=== PATIENT | female | born 1985 | race Caucasian/White ===

== ENCOUNTER 2018-01-19 15:32 | Emergency (ER) | payer OTHER ==
[~2018-01-19] VITALS: Ht 162.6 cm; Wt 73.0 kg
[2018-01-19 15:35] VITALS: BP 132/74
[2018-01-19] MEDS ORDERED: HYDROcodone/APAP 5/325MG 1 TAB TABLET PO ONE (16:40)
[2018-01-19] MEDS ORDERED: IBUP800T19 PO (16:44)
[2018-01-19] MEDS ORDERED: METH4TAB2 PO (16:44)
[2018-01-19] MEDS ORDERED: HYDR-971 PO (16:44)
--- NOTE | 2018-01-19 16:45 | PHYS DOC ---
Past History Past Medical History: No Pertinent History Past Surgical History: , Tonsillectomy Alcohol Use: None Drug Use: None Adult General Chief Complaint Chief Complaint: SHOULDER INJURY HPI HPI Patient is a 32 year old female who presents with complaining of right shoulder pain. Patient states she woke up 5 days ago with right shoulder pain and limited range of abduction that gradually getting worse. Patient states she had the same problem previously almost once a year for the last 3 years. Patient states she tried to get to her primary care physician today without available appointment. Patient was seen by a massage therapist today and had cup suctioning without improvement of her pain. Review of Systems Review of Systems Constitutional: Denies fever or chills [] Eyes: Denies change in visual acuity, redness, or eye pain [] HENT: Denies nasal congestion or sore throat [] Respiratory: Denies cough or shortness of breath [] Cardiovascular: No additional information not addressed in HPI [] GI: Denies abdominal pain, nausea, vomiting, bloody stools or diarrhea [] : Denies dysuria or hematuria [] Musculoskeletal: Denies back pain, reports joint pain [] Integument: Denies rash or skin lesions [] Neurologic: Denies headache, focal weakness or sensory changes [] Endocrine: Denies polyuria or polydipsia [] All other systems were reviewed and found to be within normal limits, except as documented in this note. Current Medications Current Medications Current Medications Medications (Trade) Dose Ordered Sig/Whit Start Time Stop Time Status Last Admin Dose Admin Acetaminophen/ Hydrocodone Bitart (Lortab 5/325) 1 tab 1X ONCE 01/19/18 16:40 01/19/18 16:41 01/19/18 16:24 1 TAB Allergies Allergies Allergies Coded Allergies Type Severity Reaction Last Updated Verified Penicillins Allergy Unknown 01/19/18 Yes Physical Exam Physical Exam Constitutional: Well developed, well nourished, mild distress, non-toxic appearance. [] HENT: Normocephalic, atraumatic. Eyes: PERRLA, EOMI, conjunctiva normal, no discharge. [] Neck: Normal range of motion, no tenderness, supple, no stridor. [] Cardiovascular:Heart rate regular rhythm, no murmur [] Lungs & Thorax: Bilateral breath sounds clear to auscultation [] Back: No tenderness, no CVA tenderness. [] Extremities: Right shoulder without deformity, limited range of abduction no neurovascular deficit, , no cyanosis, no clubbing, no edema. [] Neurologic: Alert and oriented X 3, normal motor function, normal sensory function, no focal deficits noted. [] Psychologic: Affect normal, judgement normal, mood normal. [] Current Patient Data Vital Signs Vital Signs Date Time Temp Pulse Resp B/P (MAP) Pulse Ox O2 Delivery O2 Flow Rate FiO2 01/19/18 16:24 18 01/19/18 15:35 98.4 92 99 Room Air EKG EKG [] Radiology/Procedures Radiology/Procedures [] Course & Med Decision Making Course & Med Decision Making Evaluation of patient in ER showed 32-year-old male patient with complaining of right shoulder pain and limited range of abduction. Patient has history of the same problem previously. Patient had unremarkable physical exam except for limited range of abduction. Patient hasn't dose of [place] in ER and instructed to follow with her primary care physician for possible MRI and evaluation of rotator cuff injury and tear. Dragon Disclaimer Dragon Disclaimer This electronic medical record was generated, in whole or in part, using a voice recognition dictation system. Departure Departure: Impression: Primary Impression: Strain of rotator cuff Disposition: HOME, SELF-CARE (at 1641) Condition: STABLE Referrals: PCP,UNKNOWN (PCP) Patient Instructions: Rotator Cuff Tendinitis Additional Instructions: Apply ice on the affected area Follow-up with your primary care physician in 3-5 days Return to ER if not getting better Scripts Hydrocodone Bit/Acetaminophen (NORCO 5-325 TABLET) 1 Each Tablet 1 TAB PO PRN Q6HRS PRN for PAIN, #14 TAB 0 Refills Prov: AMANDA MOORE MD 01/19/18 Ibuprofen (IBUPROFEN) 800 Mg Tablet 1 TAB PO TID, #30 TAB Prov: AMANDA MOORE MD 01/19/18 Methylprednisolone (MEDROL) 4 Mg Tab.ds.pk 1 PKG PO UD, #1 PKG Prov: AMANDA MOORE MD 01/19/18 AMANDA MOORE MD Jan 19, 2018 16:45
== END 2018-01-19 16:53 | disposition home or self-care (01) ==
LOC: ER 15:32
DX: S46.011A Strain of muscle(s) and tendon(s) of the rotator cuff of right shoulder, initial encounter (principal); Z88.0 Allergy status to penicillin; X58.XXXA Exposure to other specified factors, initial encounter; Y93.89 Activity, other specified; Y92.89 Other specified places as the place of occurrence of the external cause; Y99.8 Other external cause status
CPT/HCPCS: 99283

== ENCOUNTER 2018-09-30 09:02 | Emergency (ER) | payer OTHER ==
[~2018-09-30] VITALS: Ht 162.6 cm; Wt 73.0 kg
[~2018-09-30 09:02] MED LIST: HYDR-3165 PO; IBUP800T19 PO; METH4TAB2 PO
[2018-09-30 09:22] VITALS: BP 113/69
[2018-09-30] MEDS ORDERED: MELO7.5T29 PO (09:39)
[2018-09-30] MEDS ORDERED: TRAM50TA PO (09:39)
[2018-09-30] MEDS ORDERED: PRED50TA PO (09:39)
--- NOTE | 2018-09-30 09:39 | PHYS DOC ---
Past History Past Medical History: No Pertinent History Past Surgical History: , Tonsillectomy, Other Additional Past Surgical Histo: right carpal tunnel Smoking: Non-smoker Alcohol Use: None Drug Use: None Adult General Chief Complaint Chief Complaint: WRIST PAIN HPI HPI Patient is a 33-year-old female presents with long-standing pain and swelling in both hands. It has gotten worse over the past month such that she cannot wear her rings. She has had an extensive workup to include logic studies and reports being negative for rheumatoid arthritis. She has not achieved pain relief with Naprosyn 375 mg. Denies any trauma. Reports that it is diffuse in both hands. She does have a history of back and neck issues without any acute exacerbation of either of those. She denies any numbness that is newer than the past 10 months.[] Review of Systems Review of Systems Constitutional: Denies fever or chills [] Eyes: Denies change in visual acuity, redness, or eye pain [] HENT: Denies nasal congestion or sore throat [] Respiratory: Denies cough or shortness of breath [] Cardiovascular: No chest pain or palpitations[] GI: Denies abdominal pain, nausea, vomiting, bloody stools or diarrhea [] : Denies dysuria or hematuria [] Musculoskeletal: See history of present illness[] Integument: Denies rash or skin lesions [] Neurologic: Denies headache, focal weakness or sensory changes [] Endocrine: Denies polyuria or polydipsia [] All other systems were reviewed and found to be within normal limits, except as documented in this note. Allergies Allergies Allergies Coded Allergies Type Severity Reaction Last Updated Verified Penicillins Allergy Unknown 01/19/18 Yes Physical Exam Physical Exam Constitutional: Well developed, well nourished, no acute distress, non-toxic appearance. [] HENT: Normocephalic, atraumatic, bilateral external ears normal, oropharynx moist, no oral exudates, nose normal. [] Eyes: PERRLA, EOMI, conjunctiva normal, no discharge. [] Neck: Normal range of motion, no tenderness, supple, no stridor. [] Cardiovascular:Heart rate regular rhythm, no murmur [] Lungs & Thorax: Bilateral breath sounds clear to auscultation [] Abdomen: Not examined. [] Skin: Warm, dry, no erythema, no rash. [] Back: No tenderness, no CVA tenderness. [] Extremities: Bilateral hands have diffuse swelling and tenderness. No increased pain with axial load. FDS, FDP, extensor mechanism, normal opposition both hands. Patient is distally neurovascularly intact and symmetric. Strength is 5 out of 5 throughout. There is no wrist tenderness, negative Tinel's bilaterally. Full range of motion in the elbow and shoulder. No exacerbation of pain with axial neck compression. Lower extremities show: No tenderness, no cyanosis, no clubbing, ROM intact, no edema. [] Neurologic: Alert and oriented X 3, normal motor function, normal sensory function, no focal deficits noted. [] Psychologic: Affect normal, judgement normal, mood normal. [] Current Patient Data Vital Signs Vital Signs Date Time Temp Pulse Resp B/P (MAP) Pulse Ox O2 Delivery O2 Flow Rate FiO2 09/30/18 09:22 Room Air EKG EKG [] Radiology/Procedures Radiology/Procedures [] Course & Med Decision Making Course & Med Decision Making Pertinent Labs and Imaging studies reviewed. (See chart for details) Medical decision making: Patient without trauma and long-standing history of this issue, believe it to be more rheumatologic in nature despite previous workup that was negative for the traditional markers of rheumatologic disease. We will attempt a short course of steroids as well as changing her nonsteroidal anti-inflammatory, and will treat with more potent pain medicine. No evidence of this being a clotting issue. No evidence of an infection. No evidence of osteomyelitis. No evidence of this being a fracture.[] Dragon Disclaimer Dragon Disclaimer This electronic medical record was generated, in whole or in part, using a voice recognition dictation system. Departure Departure: Impression: Primary Impression: Bilateral hand pain Disposition: 01 HOME, SELF-CARE Condition: IMPROVED Referrals: MIESHA SRIVASTAVA DO (PCP) Follow-up in 2 days Patient Instructions: Arthritis, Nonspecific, Rheumatoid Arthritis Additional Instructions: Follow-up with your regular doctor in 2 days. Take the medicine as prescribed. Stop your current Naprosyn. Return to the ER if worsening pain or any other concerns. Scripts Tramadol Hcl (TRAMADOL HCL) 50 Mg Tablet 50 MG PO PRN Q6HRS PRN for PAIN, #20 TAB Prov: BOB GUARDADO DO 09/30/18 Prednisone (PREDNISONE) 50 Mg Tablet 1 TAB PO DAILY for INFLAMMATION, #7 TAB Prov: BOB GUARDADO DO 09/30/18 Meloxicam (MELOXICAM) 7.5 Mg Tablet 7.5 MG PO DAILY for PAIN, #20 TAB Prov: BOB GUARDADO DO 09/30/18 BOB GUARDADO DO Sep 30, 2018 09:39
== END 2018-09-30 09:57 | disposition home or self-care (01) ==
LOC: ER 09:02
DX: M79.642 Pain in left hand (principal); M79.641 Pain in right hand; R22.33 Localized swelling, mass and lump, upper limb, bilateral; Z88.0 Allergy status to penicillin
CPT/HCPCS: 99283